=== PATIENT | female | born 1960 | race African-American/Black ===

== ENCOUNTER 2019-10-24 18:37 | Emergency (ER) | payer SELFPAY ==
[2019-10-24 19:26] LABS: #Basophils 0.1 thou/uL (0.0-0.2); #Eosinphils 0.5 thou/uL (0.0-0.7); #Lymphocytes 2.8 thou/uL (1.20-3.40); #Monocytes 0.5 thou/uL (0.11-0.59); #Neutrophils 6.8 thou/uL (1.40-6.50); %Basophils 0.8 % (0.0-1.0); %Eosinophils 4.4 % (0.0-10.0); %Lymphocytes 26.2 % (21.0-51.0); %Monocytes 4.7 % (0.0-10.0); %Neutrophils 63.8 % (42.0-75.0); Hemoglobin 13.6 g/dL (12.0-16.0); Mean Corpuscular HGB CONC 29.3 g/dL (32.0-36.0); Mean Corpuscular Hemoglobin 27.9 pg (27.0-31.0); Mean Corpuscular Volume 95.1 fL (78.0-98.0); Mean Platelet Volume 7.7 fL (7.4-10.4); Platelet Count 276 thou/uL (130-400); RBC Distribution Width 13.9 % (11.5-14.5); Red Blood Cell (RBC) Count 4.87 mill/uL (4.20-5.40); White Blood Cell (WBC) Count 10.6 thou/uL (4.8-10.8)
[2019-10-24 19:35] LABS: ALT (SGPT) 21 U/L (8-55); AST (SGOT) 21 U/L (5-34); Albumin 4.2 g/dL (3.5-5.0); Alkaline Phosphatase 94 U/L (40-110); Anion Gap 13 mmol/L (10-20); BUN (Urea Nitrogen) 14 mg/dL (9.8-20.1); Bilirubin, Total 0.5 mg/dL (0.2-1.2); Calc. Creatinine Clearance 0 mL/min (70-130); Calcium 9.8 mg/dL (7.8-10.44); Carbon Dioxide 25 mmol/L (22-29); Chloride 110 mmol/L (98-107); Estimated GFR-MDRD 67; Globulin 3.4 g/dL (2.4-3.5); Glucose 108 mg/dL (70-105); Potassium 4.4 mmol/L (3.5-5.1); Protein, Total 7.6 g/dL (6.0-8.3); Sodium 144 mmol/L (136-145)
[2019-10-24 19:49] LABS: Hypochromia SLIGHT = 6-15 cells (100X) (0-5/hpf); MDiff Complete? YES
--- NOTE | 2019-10-24 20:16 | CT ---
CT OF THE BRAIN WITHOUT CONTRAST: Date: 10-24-2019 FINDINGS: A noncontrast CT shows normal sized ventricles with no shift. There is some patchy hyperlucency in th e deep white matter consistent with chronic microvascular ischemia. There were no findings of a defin ite acute stroke. There is no sign of mass or edema. The posterior fossa was unremarkable. The mastoi d air cells are clear, as are the visible paranasal sinuses. IMPRESSION: No acute intracranial findings. Preliminary report called to [facility] in ER at 1946 on 10-24-2019. POS: HOME
[2019-10-24] MEDS ORDERED: Aspirin Chewable 81 MG TAB ONE (20:45)
[2019-10-24] MEDS ORDERED: Meclizine HCl 25 MG TAB ONE (21:20)
[2019-10-24 21:31] LABS: Bilirubin Negative (Negative); Blood, Urine Negative (Negative); Clarity Clear (Clear); Glucose, Urine (Dipstick) Negative (Negative); Ketone, Urine Negative (Negative); Leukocyte Trace (Negative); Nitrite Negative (Negative); Protein, Urine (Dipstick) Negative (Neg-Trace); Urobilinogen 0.2 mg/dL (Less than 2)
[2019-10-24 21:37] LABS: Bacteria/HPF 1+ HPF (None Seen); RBC/HPF None Seen HPF (0-3); Transitional Epithelial 0-3 HPF (None Seen); WBC/HPF 0-3 HPF (0-3)
[2019-10-24 21:39] LABS: Oval Fat Bodies/HPF Rare HPF (None Seen)
== END 2019-10-24 21:52 | disposition home or self-care (01) ==
LOC: BURERS 18:37
DX: R42 Dizziness and giddiness (principal); N30.00 Acute cystitis without hematuria; I10 Essential (primary) hypertension; F31.9 Bipolar disorder, unspecified; F17.200 Nicotine dependence, unspecified, uncomplicated; Z79.899 Other long term (current) drug therapy
CPT/HCPCS: 36415; 70450; 80053; 81003; 81015; 84484; 85025; 87086; 93005; 96360